=== PATIENT | male | born 1945 | race Caucasian/White ===

== ENCOUNTER 2021-08-04 10:42 | Observation (INO) ==
[2021-08-04] MEDS ORDERED: IOPAMIDOL 100 ML BOTTLE IV ONE (10:43)
--- NOTE | 2021-08-04 11:04 | Emergency Department Note ---
Neuro HPI General Chief Complaint: Stroke Symptoms Stated Complaint: Stroke symptoms, 929 last night Time Seen by Provider: 08/04/21 11:04 Source: patient Mode of arrival: ambulatory Limitations: no limitations History of Present Illness HPI Narrative: Narrative: 76-year-old male presents to the emergency department today because of a myriad of symptoms including tingling in the left upper extremity, confusion, bad headache, inability to clearly recall, lightheadedness, chills. Patient states that the symptoms began last night. To today they became difficult to ignore it so he let his know and subsequently came to the emerge department. Patient said he has had the symptoms in the past but they resolve. He has not had it evaluated no advised the physicians of that. He rates his discomfort as a 1 on a 0-to-10 scale states it is constant. Nothing makes it better or worse. Associated with all of the above. No radiation. Patient is also had associated emotional changes which are atypical for the patient. Patient stated that he felt dizzy this morning and had to lean against an object to keep from falling to the ground. He denied any pain. States his lower extremities feel normal. States that he believes his speech is normal and his face feels normal. 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 Patient's past medical history includes stomach problems for which she takes Prilosec. Related Data Home Medications Medication Instructions Recorded Confirmed acetaminophen 650 mg 650 mg PO QAM tab 07/12/19 07/23/21 tablet,extended release (Tylenol 8 Hour) cholecalciferol (vitamin D3) 1,250 50,000 unit PO QDAY cap 07/12/19 07/23/21 mcg (50,000 unit) capsule epinephrine 0.3 mg/0.3 mL 0.3 ml IM DIRECTED each 07/12/19 07/23/21 injection, auto-injector (EpiPen 2-Thong) fluticasone propionate 50 1 spray INTRANASAL DIRECTED PRN 07/12/19 07/23/21 mcg/actuation nasal ml spray,suspension melatonin 5 mg tablet 5 mg PO HS PRN 04/25/21 07/23/21 Previous Rx's Medication Instructions Recorded albuterol sulfate 90 mcg/actuation See Rx Instructions .ROUTE 10/27/19 aerosol inhaler (Ventolin HFA) .COMPLEX #18 unknown measurement unit code: gram baclofen 5 mg tablet 5 mg PO BID #60 tab 07/23/21 omeprazole 20 mg capsule,delayed 20 mg PO QDAY #30 cap 07/23/21 release Allergies Allergy/AdvReac Type Severity Reaction Status Date / Time almond Allergy Unknown Unknown Verified 08/04/21 10:42 Sulfa (Sulfonamide Allergy Unknown Unknown Verified 08/04/21 10:42 Antibiotics) carob Allergy Unknown Unknown Uncoded 07/23/21 10:08 Review of Systems ROS ROS Narrative: Narrative: All systems ED: reviewed and negative except as stated. Constitutional: Denies fever ENT ED: Denies throat pain or rhinorrhea Cardiovascular: Denies chest pain Respiratory: Denies shortness of breath Gastrointestinal: Denies abdominal pain Neurological: Reports headache PFSH Narrative Patient History Narrative: Narrative: Medical/Surgical/Family History All Active Problems (Updated 08/04/21 @ 16:34 by Kushal Nova MD) TIA (transient ischemic attack) (Acute) Acute cerebrovascular accident (CVA) (Acute) Excessive cerumen in right ear canal (Acute) Left lower quadrant abdominal pain (Acute) Impacted cerumen, bilateral (Acute) Right upper quadrant abdominal pain (Acute) Chest pain, atypical (Acute) Preoperative examination (Acute) Left knee DJD (Acute) Wheezing (Acute) Upper respiratory infection (Acute) Left medial knee pain (Acute) History of rotator cuff surgery (Chronic ~09/2005) History of colonoscopy (Chronic 04/08/18) Asthma (Chronic) Urticaria (Chronic) Hx of migraines (Chronic) History of nephrolithiasis (Chronic) Pulmonary hypertension (Chronic) Lumbar radiculopathy (Chronic) History of prostate cancer (Chronic) Encounter for long-term (current) use of medications (Chronic) Fatigue (Chronic) BPH (benign prostatic hyperplasia) (Chronic) GERD (gastroesophageal reflux disease) (Chronic) Arthralgia (Chronic) BMI 25.0-25.9,adult (Chronic) Hearing aid worn (Chronic) Sleep apnea (Chronic) Diverticulosis of colon (Chronic) Adenomatous colon polyp (Chronic) Hemorrhoids (Chronic) Excessive daytime sleepiness (Chronic) Snoring (Chronic) DDD (degenerative disc disease), lumbar (Chronic) Hip pain, left (Chronic) Shoulder pain, left (Chronic) Hyperlipidemia (Chronic) History of adenomatous polyp of colon (Chronic) Medical History Adenomatous colon polyp Arthralgia Asthma BMI 25.0-25.9,adult BPH (benign prostatic hyperplasia) DDD (degenerative disc disease), lumbar Diverticulosis of colon Encounter for long-term (current) use of medications Excessive daytime sleepiness normal night sleep Fatigue GERD (gastroesophageal reflux disease) Hearing aid worn Hemorrhoids Hip pain, left History of adenomatous polyp of colon History of nephrolithiasis History of prostate cancer Hx of migraines Hyperlipidemia mild, unchanged. Lumbar radiculopathy Pulmonary hypertension Shoulder pain, left Sleep apnea Snoring Urticaria carries epi pen Surgical History History of colonoscopy (04/08/18) Dr Meyer History of rotator cuff surgery (~09/2005) History of surgery TF DIEGO #1 Lt L3-4, Rt L5-S1 w/sed 03/06/2007/29 TF DIEGO #2 Rt. L5-S1, Lt. L3-4 w/sed 07/20/201903/29 TF DIEGO #1 Rt. L5-S1, Lt. L3-4 w/sed 04/01/201910/27 TF DIEGO #2 Rt L5-S1, Lt L3-4 w/sed 10/26/1807/28 TF DIEGO #1 Rt L5-S1, Lt L3-4 w/sed 07/14/1811/26 TF DIEGO #2 L3-4, left L5-S1, Right 11/20/201705/27 TF DIEGO #1 Rt L5-S1, Lt L3-4 w/o sed 06/05/2017 Family History Brother Asthma Brother Diabetes mellitus type 2 Sister Breast cancer Mother Ventricular shunt in place Parkinsons Father , age 51 Amyloidosis Grandmother Stroke maternal - in 1972 Old age paternal - in 2000 or 2002 Grandfather Old age Paternal in 1988 age 89 old age. Maternal in 2002 from old age Social History Smoking Status: Never smoker Substance Use: does not use Exam Narrative Narrative: Narrative: General Limitations: no limitations General appearance: Present alert and in no apparent distress Head Head: Present atraumatic and normocephalic Eye Eye: Present normal appearance and EOMI Neck Neck: Present normal inspection and trachea midline Respiratory Respiratory: Absent respiratory distress Cardiovascular Cardiovascular: Present regular rate Adbominal Abdominal: Present soft; Absent tenderness Extremities Extremities: Present normal inspection and other (Left upper extremity with 5/5 motor but with decrease in sensation.); Absent tenderness Neurological Neurological: Present alert, oriented X3 and other (Patient with strokelike symptoms including the loss of cunning with his left upper extremity.) Psychiatric Psychiatric: Present normal affect and normal mood Skin Skin: Present warm (WNL) and dry Course Vital Signs Vital signs: Vital Signs Pulse Rate 96 H 08/04/21 10:42 Respiratory Rate 16 08/04/21 10:42 Blood Pressure 163/103 08/04/21 10:42 Pulse Oximetry (%) 96 08/04/21 10:42 Pulse Rate 69 08/04/21 16:16 Respiratory Rate 21 08/04/21 16:16 Blood Pressure 118/78 08/04/21 16:16 Pulse Oximetry (%) 94 08/04/21 16:16 MDM MDM Narrative Medical decision making narrative: Narrative: Elderly male presents emerge department with strokelike symptoms that began greater than 12 hours ago. Differential diagnosis includes subdural hematoma, subarachnoid bleed, stroke with, ischemic changes in the brain, TIA, other. Patient arrived in stroke protocol was immediately instituted. Patient had a CT scan of the head which was read by the radiologist as showing no acute pathology. Case was discussed with the telestroke DrAugie (Aftab?). He advised that the patient be given aspirin 81 mg/day no Plavix. Lipitor 40 mg p.o. daily. NIH scale was performed and that showed a 1. Neurologist requested CT angio of the head and neck with those were performed and read by radiologist showing no no acute pathology. There was a 50% proximal left internal carotid artery blockage. Neurologist recommended patient be admitted to the hospital and have MRI. I discussed the case with our hospitalist Dr. Nova. He is agreeable to admit the p atient. While no MRI may be available at the moment a repeat CT scan may be obtained subsequently. He will further manage patient as needed. During this time patient had another episode of the left upper extremity developing a heavy sensation along with some tingling. The I discussed with the patient admission to the hospital and patient family were agreeable. Lab Data Result diagrams: 08/04/21 10:50 08/04/21 10:50 Labs: Lab Results 08/04/21 08/04/21 08/04/21 Range/Units 10:50 10:50 10:50 WBC 9.1 (4.5-11.0) K/mcL RBC 4.80 (4.63-6.08) M/mcL Hgb 15.4 (13.7-17.5) g/dL Hct 44.7 (40.1-51.0) % MCV 93.1 (80.0-100.0) fL MCH 32.1 (26.0-34.0) pg MCHC 34.5 (31.0-36.0) g/dL RDW 12.5 (11.5-14.5) % Plt Count 232 (140-440) K/mcL MPV 9.9 (7.4-10.4) fL Neut % (Auto) 78.8 H (38.0-78.0) % Lymph % (Auto) 12.1 L (15.5-49.0) % [place] % (Auto) 7.3 (1.0-12.0) % Eos % (Auto) 1.1 (0.0-7.0) % Baso % (Auto) 0.7 (0.0-2.0) % Lymph # (Auto) 1.10 L (1.50-4.80) K/mcL [place] # (Auto) 0.66 (0.10-0.90) K/mcL Eos # (Auto) 0.10 (0.00-0.70) K/mcL Baso # (Auto) 0.06 (0.00-0.30) K/mcL Absolute Neutrophils 7.14 (1.80-8.00) K/mcL POC PT 12.7 (11.9-14.5) sec PT 13.5 (11.9-14.5) sec POC INR 1.1 (0.8-1.2) INR 1.0 (0.9-1.1) APTT 31.5 (20.0-37.0) sec Sodium 132 L (133-145) mmol/L Potassium 4.0 (3.3-5.1) mmol/L Chloride 101 (96-108) mmol/L Carbon Dioxide 20 L (22-30) mmol/L Anion Gap 11.0 (8.0-16.0) BUN 20 (8-23) mg/dL Creatinine 1.0 (0.7-1.2) mg/dL POC Creatinine 1.0 (0.6-1.2) mg/dL GFR Calculation 74 Glucose 103 (70-105) mg/dL Calcium 9.7 (8.6-10.4) mg/dL Total Bilirubin 0.4 (0.1-1.0) mg/dL AST 24 (<40) U/L ALT 19 (<40) U/L Alkaline Phosphatase 63 (39-117) U/L Troponin T (<0.03) ng/mL Total Protein 6.9 (5.9-8.4) gm/dL Albumin 4.1 (3.2-5.2) gm/dL Globulin 2.8 (2.2-3.7) gm/dL Albumin/Globulin Ratio 1.5 (1.0-2.3) Urine Color Urine Appearance (Clear) Urine pH (5.0-9.0) Ur Specific [place] (1.000-1.035) Urine Protein (Negative) mg/dL Urine Glucose (UA) (Negative) mg/dL Urine Ketones (Negative) mg/dL Urine Occult Blood (Negative) mg/dL Urine Nitrate (Negative) Urine Bilirubin (Negative) mg/dL Urine Urobilinogen mg/dL Ur Leukocyte Esterase (Negative) /uL Ur Culture Indicated? 08/04/21 08/04/21 Range/Units 10:50 12:28 WBC (4.5-11.0) K/mcL RBC (4.63-6.08) M/mcL Hgb (13.7-17.5) g/dL Hct (40.1-51.0) % MCV (80.0-100.0) fL MCH (26.0-34.0) pg MCHC (31.0-36.0) g/dL RDW (11.5-14.5) % Plt Count (140-440) K/mcL MPV (7.4-10.4) fL Neut % (Auto) (38.0-78.0) % Lymph % (Auto) (15.5-49.0) % [place] % (Auto) (1.0-12.0) % Eos % (Auto) (0.0-7.0) % Baso % (Auto) (0.0-2.0) % Lymph # (Auto) (1.50-4.80) K/mcL [place] # (Auto) (0.10-0.90) K/mcL Eos # (Auto) (0.00-0.70) K/mcL Baso # (Auto) (0.00-0.30) K/mcL Absolute Neutrophils (1.80-8.00) K/mcL POC PT (11.9-14.5) sec PT (11.9-14.5) sec POC INR (0.8-1.2) INR (0.9-1.1) APTT (20.0-37.0) sec Sodium (133-145) mmol/L Potassium (3.3-5.1) mmol/L Chloride (96-108) mmol/L Carbon Dioxide (22-30) mmol/L Anion Gap (8.0-16.0) BUN (8-23) mg/dL Creatinine (0.7-1.2) mg/dL POC Creatinine (0.6-1.2) mg/dL GFR Calculation Glucose (70-105) mg/dL Calcium (8.6-10.4) mg/dL Total Bilirubin (0.1-1.0) mg/dL AST (<40) U/L ALT (<40) U/L Alkaline Phosphatase (39-117) U/L Troponin T < 0.01 (<0.03) ng/mL Total Protein (5.9-8.4) gm/dL Albumin (3.2-5.2) gm/dL Globulin (2.2-3.7) gm/dL Albumin/Globulin Ratio (1.0-2.3) Urine Color Yellow Urine Appearance Clear (Clear) Urine pH 6.0 (5.0-9.0) Ur Specific [place] 1.036 (1.000-1.035) Urine Protein Negative (Negative) mg/dL Urine Glucose (UA) Negative (Negative) mg/dL Urine Ketones Negative (Negative) mg/dL Urine Occult Blood Negative (Negative) mg/dL Urine Nitrate Negative (Negative) Urine Bilirubin Negative (Negative) mg/dL Urine Urobilinogen Negative mg/dL Ur Leukocyte Esterase Negative (Negative) /uL Ur Culture Indicated? No ED POC Tests ED POC Tests: LEYLA - SARS Antigen Negative EKG Data EKG #1: EKG attestation: Yes I reviewed and interpreted this EKG. EKG shows normal: sinus rhythm Rate: normal Rhythm: NSR [place]/QRS: left axis deviation ST segment elevation in: None ST segment depression in: None Hyperacute T waves: None Interpretation: other (Abnormal EKG. Sinus rhythm with left axis deviation) Discharge Plan Patient/Caregiver Discharge Instructions Pt seen by CARPORT ERECTOR/PA only: No Clinical Impression: Acute cerebrovascular accident (CVA) Patient Disposition: Xfer As Inpt ([facility]) Condition: Serious Follow up with: Kaelyn Botello ARNP [Primary Care Provider] - Prescriptions: No Action albuterol sulfate [Ventolin HFA] 90 mcg/actuation HFA aerosol inhaler See Rx Instructions .ROUTE .COMPLEX Qty: 18 1RF Dose Instruction: INHALE 2 PUFFS PO Q4H PRN COUGH AND WHEEZE Rx Instructions: INHALE 2 PUFFS PO Q4H PRN COUGH AND WHEEZE fluticasone propionate 50 mcg/actuation spray,suspension 1 spray INTRANASAL DIRECTED PRN0RF cholecalciferol (vitamin D3) 50,000 unit capsule 50,000 unit PO QDAY 0RF acetaminophen [Tylenol 8 Hour] 650 mg tablet extended release 650 mg PO QAM 0RF epinephrine [EpiPen 2-Thong] 0.3 mg/0.3 mL auto-injector 0.3 ml IM DIRECTED 0RF baclofen 5 mg tablet 5 mg PO BID Qty: 60 1RF omeprazole 20 mg capsule,delayed release(DR/EC) 20 mg PO QDAY Qty: 30 1RF melatonin 5 mg tablet 5 mg PO HS PRN0RF
[2021-08-04 11:25] LABS: POC INR 1.1 (0.8-1.2); POC Pro Time 12.7 sec (11.9-14.5)
[2021-08-04 11:27] LABS: Basophils # (Auto) 0.06 K/mcL (0.00-0.30); Basophils % (Auto) 0.7 % (0.0-2.0); Eosinophils % (Auto) 1.1 % (0.0-7.0); Hematocrit 44.7 % (40.1-51.0); Hemoglobin 15.4 g/dL (13.7-17.5); Lymphocytes % (Auto) 12.1 % (15.5-49.0); Mean Cell Volume 93.1 fL (80.0-100.0); Mean Corpuscular HGB Conc 34.5 g/dL (31.0-36.0); Mean Platelet Volume 9.9 fL (7.4-10.4); Monocytes # (Auto) 0.66 K/mcL (0.10-0.90); Monocytes % (Auto) 7.3 % (1.0-12.0); Neutrophils % (Auto) 78.8 % (38.0-78.0); Platelet Count 232 K/mcL (140-440); Red Cell Distribution Width 12.5 % (11.5-14.5); WBC 9.1 K/mcL (4.5-11.0)
[2021-08-04 11:39] LABS: Partial Thromboplastin Time 31.5 sec (20.0-37.0); Prothrombin Time 13.5 sec (11.9-14.5)
[2021-08-04] MEDS ORDERED: ASPIRIN 81 MG TAB.CHEW CHEWED ONE ×2 (11:43→16:55)
[2021-08-04] MEDS ORDERED: ATORVASTATIN 40 MG TABLET PO ONE (11:43)
[2021-08-04 11:44] LABS: ALT/SGPT 19 U/L (<40); AST/SGOT 24 U/L (<40); Albumin 4.1 gm/dL (3.2-5.2); Albumin/Globulin Ratio 1.5 (1.0-2.3); Alkaline Phosphatase 63 U/L (39-117); Bilirubin,Total 0.4 mg/dL (0.1-1.0); Blood Urea Nitrogen 20 mg/dL (8-23); Calcium 9.7 mg/dL (8.6-10.4); Carbon Dioxide 20 mmol/L (22-30); Chloride 101 mmol/L (96-108); Globulin 2.8 gm/dL (2.2-3.7); Glomerular Filtration Rate 74; Glucose 103 mg/dL (70-105)
[2021-08-04 13:03] LABS: Appearance,Urine CLEAR (Clear); Bilirubin,Urine Negative (Negative); Color,Urine YELLOW; Culture Indicated,Urine No; Glucose,Urine (UA) Negative (Negative); Ketones,Urine Negative (Negative); Leukocyte Esterase,Urine Negative /uL (Negative); Nitrate,Urine Negative (Negative); Protein,Urine Negative (Negative); Specific Gravity,Urine 1.036 (1.000-1.035); Urine Blood Negative (Negative); Urobilinogen,Urine Negative
--- NOTE | 2021-08-04 14:10 | Cat Scan Report ---
History: Neurologic deficit with lightheadedness and left arm tingling TECHNIQUE: The brain was imaged without contrast in axial plane at 2.5 mm intervals. Radiation exposure was limited using dose reduction technology. FINDINGS: There is no evidence of an infarct, hemorrhage, edema or mass effect. There is moderate atrophy in the frontal lobes with milder temporal and cerebellar atrophy. Ventricles are normal in size. There is no abnormal extra-axial fluid collection. Mild mucosal thickening is seen along the welsh of a few ethmoid air cells bilaterally. IMPRESSION: Age-related degenerative changes and no acute abnormality Dr. Mohan was called with the report Interpreted and Authenticated by: Alberto Mancear 08/04/21
--- NOTE | 2021-08-04 14:21 | Cat Scan Report ---
History: Stroke symptoms with lightheadedness and left arm tingling TECHNIQUE: Following injection of intravenous nonionic contrast the patient was imaged from the top of the head through the aortic arch. Sagittal and coronal reformats were created of the head and neck separately. The radiation exposure was limited using dose reduction technology. Brain: The intracranial portions of both internal carotids are normal and there is no plaque formation or stenosis. The anterior and middle cerebral arteries are normal in caliber and symmetric. There is origin of the left posterior cerebral, with an absent P1 segment of the left posterior cerebral. This is an anatomic variant. The right posterior communicating artery is relatively small and there is small but patent anterior communicating artery. Left vertebral artery is dominant but both vertebral arteries are normal in caliber and there is no plaque formation. Basilar artery and posterior fossa circulation are normal. There is no intracranial thrombosis or stenosis. No aneurysm or vascular malformation are present. NECK: The aortic arch is normal in caliber and there is no aneurysm or dissection. Small amount of calcified plaque is present distally. There is a moderate amount of soft plaque in the proximal portion of the left subclavian artery, proximal to the origin of the vertebral. This is causing approximately 50% stenosis. Distal to this the left subclavian is normal. The right innominate, right subclavian and right common carotids are normal in caliber without evidence of thrombus or stenosis. There is a moderate amount of mixed plaque in the proximal left internal carotid. This causing approximately 50% stenosis. There is no apparent ulceration within the plaque. Beyond this point the left internal carotid is normal. There is no plaque formation in the right carotid bifurcation. The distal right internal carotid is moderately tortuous but normal in caliber. External carotids are normal. The vertebral arteries are normal in caliber. The left is dominant. Enlarged lymph nodes are present in the mediastinum and upper cristal. Largest is in the pretracheal retrocaval space and measures 1.9 x 3.1 cm. The cristal are largely outside the field of view. There is a 1.2 x 1.7 cm lymph node in the left upper hilum. No mass is seen in the lung apices. Thyroid is normal. The larynx and soft tissues in the neck are normal. There is severe degenerative disc disease and arthritis at C3-4, C4-5, C5-C6 and C6-7. There is 5 mm grade 1 spondylolisthesis at C7-T1 due to arthritis in the facets. There is mild to moderate spinal canal stenosis at C4-5. Severe stenosis is present in the neural foramina bilaterally throughout the mid and lower neck due to spurs. IMPRESSION: Normal intracranial arterial circulation without evidence of atherosclerosis or thrombosis 50% stenosis at the origin of the proximal left internal carotid and the proximal left subclavian arteries due to plaque. Normal right carotid Dr. Mohan was called at 1:10 PM Interpreted and Authenticated by: Alberto Mancera 08/04/21
--- NOTE | 2021-08-04 16:24 | Internal Med History&Physical ---
HPI History of Present Illness Patient information: Note initiated : 08/04/21 at 4:23 pm Service Date, if different from initiated Date: [] Patient: Brian Keith 76 y/o M admitted on for Stroke symptoms, 929 last night. Chief Complaint: [left upper extremity weakness and tingling, headache, imb alance, left sided neck pain, nausea] Chief complaint: left upper extremity weakness and tingling, headache, imbalance, left sided History of present illness: Mr. Keith is a 76 year old M history of GERD, p/w 2 days history of left upper extremity weakness and tingling, headache, imbalance, left sided neck pain, nausea. He had similar episodes months ago. Yesterday evening he had sudden onset of left upper extremity weakness and tingling, headache, imbalance, left sided neck pain, nausea. There is no tingling or weakness of other extremities. Denies any change in hearing, tinnitus, or visual changes. Denies confusion. Denies chest pain, palpitation, or shortness of breath. Patient decided to come to our ED earlier today for further evaluation of his symptoms. Vital signs at ED presentations were all within normal limits. Labs also largely within normal limits. CT head w/o contrast no acute intracranial pathologies. CTA head/neck showing 50% stenosis at the origin of the proximal left internal carotid and the proximal left subclavian arteries due to plaque. Patient currently denies any tingling or weakness of his left upper extremity. Constitutional Constitutional: Absent chills, excessive sweating, fatigue, fever(s) or weakness EENT Eyes: Absent blurry vision, change in vision, loss of vision or other visual disturbances Ears: Absent decreased hearing or tinnitus Nose, mouth and throat: Absent abnormal hearing, dry mouth, headache(s), nasal congestion or sore throat Cardiovascular Cardiovascular: Absent chest pain, chest pain at rest, edema, irregular heart rhythm or palpatations Respiratory Respiratory: Absent cough, dyspnea or wheezing Gastrointestinal Gastrointestinal: Absent abdominal pain, constipation, diarrhea, nausea or vomiting Musculoskeletal Musculoskeletal: Present muscle weakness and numbness; Absent back pain, deformity, limited range of motion or muscle cramps Integumentary Integumentary: Absent lesions, rash or wounds Neurological Neurological: Present headache(s), tingling and weakness; Absent focal weakness or numbness Psychiatric Psychiatric: Absent anxiety, depression or hallucinations PFSH PFSH All Active Problems (Updated 08/04/21 @ 16:34 by Kushal Nova MD) TIA (transient ischemic attack) (Acute) Acute cerebrovascular accident (CVA) (Acute) Excessive cerumen in right ear canal (Acute) Left lower quadrant abdominal pain (Acute) Impacted cerumen, bilateral (Acute) Right upper quadrant abdominal pain (Acute) Chest pain, atypical (Acute) Preoperative examination (Acute) Left knee DJD (Acute) Wheezing (Acute) Upper respiratory infection (Acute) Left medial knee pain (Acute) History of rotator cuff surgery (Chronic ~09/2005) History of colonoscopy (Chronic 04/08/18) Asthma (Chronic) Urticaria (Chronic) Hx of migraines (Chronic) History of nephrolithiasis (Chronic) Pulmonary hypertension (Chronic) Lumbar radiculopathy (Chronic) History of prostate cancer (Chronic) Encounter for long-term (current) use of medications (Chronic) Fatigue (Chronic) BPH (benign prostatic hyperplasia) (Chronic) GERD (gastroesophageal reflux disease) (Chronic) Arthralgia (Chronic) BMI 25.0-25.9,adult (Chronic) Hearing aid worn (Chronic) Sleep apnea (Chronic) Diverticulosis of colon (Chronic) Adenomatous colon polyp (Chronic) Hemorrhoids (Chronic) Excessive daytime sleepiness (Chronic) Snoring (Chronic) DDD (degenerative disc disease), lumbar (Chronic) Hip pain, left (Chronic) Shoulder pain, left (Chronic) Hyperlipidemia (Chronic) History of adenomatous polyp of colon (Chronic) Medical History Adenomatous colon polyp Arthralgia Asthma BMI 25.0-25.9,adult BPH (benign prostatic hyperplasia) DDD (degenerative disc disease), lumbar Diverticulosis of colon Encounter for long-term (current) use of medications Excessive daytime sleepiness normal night sleep Fatigue GERD (gastroesophageal reflux disease) Hearing aid worn Hemorrhoids Hip pain, left History of adenomatous polyp of colon History of nephrolithiasis History of prostate cancer Hx of migraines Hyperlipidemia mild, unchanged. Lumbar radiculopathy Pulmonary hypertension Shoulder pain, left Sleep apnea Snoring Urticaria carries epi pen Surgical History History of colonoscopy (04/08/18) Dr Meyer History of rotator cuff surgery (~09/2005) History of surgery TF DIEGO #1 Lt L3-4, Rt L5-S1 w/sed 03/06/2007/29 TF DIEGO #2 Rt. L5-S1, Lt. L3-4 w/sed 07/20/201903/29 TF DIEGO #1 Rt. L5-S1, Lt. L3-4 w/sed 04/01/201910/27 TF DIEGO #2 Rt L5-S1, Lt L3-4 w/sed 10/26/1807/28 TF DIEGO #1 Rt L5-S1, Lt L3-4 w/sed 07/14/1811/26 TF DIEGO #2 L3-4, left L5-S1, Right 11/20/201705/27 TF DIEGO #1 Rt L5-S1, Lt L3-4 w/o sed 06/05/2017 Family History Brother Asthma Brother Diabetes mellitus type 2 Sister Breast cancer Mother Ventricular shunt in place Parkinsons Father , age 51 Amyloidosis Grandmother Stroke maternal - in 1972 Old age paternal - in 2000 or 2002 Grandfather Old age Paternal in 1988 age 89 old age. Maternal in 2002 from old age Social History household members: spouse marital status: occupational status: retired occupation: Retired [employer] substance use type: does not use additional history: Has 2 children, (boy & girl) and 6 grandchildren. MEDS/ALLERGIES Home Medications and Allergies Home Medications Medication Instructions Recorded Confirmed Type acetaminophen 650 mg 650 mg PO QAM tab 07/12/19 07/23/21 History tablet,extended release (Tylenol 8 Hour) cholecalciferol (vitamin D3) 1,250 50,000 unit PO QDAY cap 07/12/19 07/23/21 History mcg (50,000 unit) capsule epinephrine 0.3 mg/0.3 mL 0.3 ml IM DIRECTED each 07/12/19 07/23/21 History injection, auto-injector (EpiPen 2-Thong) fluticasone propionate 50 1 spray INTRANASAL DIRECTED PRN 07/12/19 07/23/21 History mcg/actuation nasal ml spray,suspension albuterol sulfate 90 mcg/actuation See Rx Instructions .ROUTE 10/27/19 07/23/21 Rx aerosol inhaler (Ventolin HFA) .COMPLEX #18 unknown measurement unit code: gram melatonin 5 mg tablet 5 mg PO HS PRN 04/25/21 07/23/21 History baclofen 5 mg tablet 5 mg PO BID #60 tab 07/23/21 07/23/21 Rx omeprazole 20 mg capsule,delayed 20 mg PO QDAY #30 cap 07/23/21 07/23/21 Rx release Allergies Allergy/AdvReac Type Severity Reaction Status Date / Time almond Allergy Unknown Unknown Verified 08/04/21 10:42 Sulfa (Sulfonamide Allergy Unknown Unknown Verified 08/04/21 10:42 Antibiotics) carob Allergy Unknown Unknown Uncoded 07/23/21 10:08 EXAM Constitutional Vitals: Pulse Resp BP Pulse Ox 56 L 21 124/81 94 08/04/21 15:46 08/04/21 15:46 08/04/21 15:46 08/04/21 15:46 General appearance: cooperative and no acute distress Head Head exam: Present atraumatic and normocephalic Eye Eye exam: Present EOMI and PERRL ENT ENT exam: Present mucous membranes moist, normal exam and normal external ear exam Neck Neck exam: Present normal inspection and tenderness (left lateral neck ); Absent lymphadenopathy or thyromegaly Respiratory Respiratory exam: Absent accessory muscle use, respiratory distress or wheezes Cardiovascular Cardiovascular exam: Present normal rate and rhythm; Absent JVD GI/Abdominal GI/Abdominal exam: Present normal bowel sounds and soft; Absent organomegaly or tenderness Rectal Rectal exam: Present deferred Extremities Exam Extremities exam: Present full ROM, normal capillary refill and normal inspection; Absent tenderness Neurological Exam Neurological exam: Present alert, CN II-XII intact and oriented X3; Absent motor sensory deficit Additional comments: slightly decreased light touch sensation of the left foot and ankle and lower leg Psychiatric Psychiatric exam: Present normal affect and normal mood; Absent anxious or depressed Skin Skin exam: Present dry and intact DATA Data Completed and Pending Labs: Labs from last 24 hours 08/04/21 08/04/21 08/04/21 12:28 10:50 10:50 WBC RBC Hgb Hct MCV MCH MCHC RDW Plt Count MPV Neut % (Auto) Lymph % (Auto) Glenn % (Auto) Eos % (Auto) Baso % (Auto) Lymph # (Auto) [place] # (Auto) Eos # (Auto) Baso # (Auto) Absolute Neutrophils POC PT PT POC INR INR APTT Sodium 132 L Potassium 4.0 Chloride 101 Carbon Dioxide 20 L Anion Gap 11.0 BUN 20 Creatinine 1.0 POC Creatinine 1.0 GFR Calculation 74 Glucose 103 Calcium 9.7 Total Bilirubin 0.4 AST 24 ALT 19 Alkaline Phosphatase 63 Troponin T < 0.01 Total Protein 6.9 Albumin 4.1 Globulin 2.8 Albumin/Globulin Ratio 1.5 Urine Color Yellow Urine Appearance Clear Urine pH 6.0 Ur Specific [place] 1.036 Urine Protein Negative Urine Glucose (UA) Negative Urine Ketones Negative Urine Occult Blood Negative Urine Nitrate Negative Urine Bilirubin Negative Urine Urobilinogen Negative Ur Leukocyte Esterase Negative Ur Culture Indicated? No 08/04/21 08/04/21 10:50 10:50 WBC 9.1 RBC 4.80 Hgb 15.4 Hct 44.7 MCV 93.1 MCH 32.1 MCHC 34.5 RDW 12.5 Plt Count 232 MPV 9.9 Neut % (Auto) 78.8 H Lymph % (Auto) 12.1 L Glenn % (Auto) 7.3 Eos % (Auto) 1.1 Baso % (Auto) 0.7 Lymph # (Auto) 1.10 L [place] # (Auto) 0.66 Eos # (Auto) 0.10 Baso # (Auto) 0.06 Absolute Neutrophils 7.14 POC PT 12.7 PT 13.5 POC INR 1.1 INR 1.0 APTT 31.5 Sodium Potassium Chloride Carbon Dioxide Anion Gap BUN Creatinine POC Creatinine GFR Calculation Glucose Calcium Total Bilirubin AST ALT Alkaline Phosphatase Troponin T Total Protein Albumin Globulin Albumin/Globulin Ratio Urine Color Urine Appearance Urine pH Ur Specific [place] Urine Protein Urine Glucose (UA) Urine Ketones Urine Occult Blood Urine Nitrate Urine Bilirubin Urine Urobilinogen Ur Leukocyte Esterase Ur Culture Indicated? A/P Assessment and plan (1) Acute cerebrovascular accident (CVA): Status: Acute (2) TIA (transient ischemic attack): Status: Acute (3) GERD (gastroesophageal reflux disease): Status: Chronic Qualifiers: Esophagitis presence: esophagitis presence not specified Qualified Code(s): K21.9 - Gastro-esophageal reflux disease without esophagitis Narrative A/P Narrative: Assessment and Plans: 1. CVA/stroke/TIA: Observation med surg telemetry Repeat CT head w/o contrast to look for any signs of acute ischemic stroke 2D echocardiogram Neurocheck q4hr HgA1c screening Lipid panel Aspirin Lipitor Physical therapy Occupational therapy 2. GERD: Continue oral PPI from home regimen GI ppx: Continue oral PPI from home regimen DVT ppx: Lovenox Code status: Full Prognosis: stable Disposition: observation med surg telemetry Time Spent With Patient Time: Total time spent is greater than 50% in coordination of care (as documented) at patient's floor/unit and/or counseling patient: Total time spent with greater than 50% in coordination of care (as documented) at patient's floor/unit and/or counseling patient:: 25 - 35 minutes QUALITY Stroke Symptom Onset Unknown: No
[2021-08-04] MEDS ORDERED: FLUTICASONE PROPIONATE SPRAY.NAS NS PRN (16:55)
[2021-08-04] MEDS ORDERED: ONDANSETRON 4 MG/2 ML VIAL IV PRN (16:55)
[2021-08-04] MEDS ORDERED: IPRATROPIUM/ALBUTEROL 3 ML AMPUL.NEB NEB PRN (16:55)
[2021-08-04] MEDS ORDERED: ZOLPIDEM 5 MG TABLET PO PRN (16:55)
[2021-08-04] MEDS ORDERED: MELATONIN 3 MG TABLET PO PRN (17:05)
[2021-08-04 17:21] LABS: Hemoglobin A1C 5.8 % Hgb (4.0-6.0)
[2021-08-04] MEDS ORDERED: SENNOSIDES 1 TABLET PO SCH (21:00)
[2021-08-04] MEDS: BACLOFEN 10 MG TABLET PO SCH (21:59)
[2021-08-04] MEDS: DOCUSATE SODIUM 100 MG CAPSULE PO SCH (21:59)
[2021-08-04] MEDS: 0.9 % SODIUM CHLORIDE 10 ML SYRINGE IV SCH (22:00)
[2021-08-05] MEDS: 0.9 % SODIUM CHLORIDE 10 ML SYRINGE IV SCH (05:50)
[2021-08-05 07:03] LABS: Basophils # (Auto) 0.05 K/mcL (0.00-0.30); Basophils % (Auto) 0.7 % (0.0-2.0); Eosinophils # (Auto) 0.39 K/mcL (0.00-0.70); Eosinophils % (Auto) 5.6 % (0.0-7.0); Hematocrit 44.2 % (40.1-51.0); Hemoglobin 14.8 g/dL (13.7-17.5); Lymphocytes # (Auto) 1.98 K/mcL (1.50-4.80); Lymphocytes % (Auto) 28.5 % (15.5-49.0); Mean Cell Volume 93.4 fL (80.0-100.0); Mean Corpuscular HGB Conc 33.5 g/dL (31.0-36.0); Mean Platelet Volume 10.5 fL (7.4-10.4); Monocytes # (Auto) 0.59 K/mcL (0.10-0.90); Monocytes % (Auto) 8.5 % (1.0-12.0); Neutrophils % (Auto) 56.7 % (38.0-78.0); Platelet Count 206 K/mcL (140-440); RBC 4.73 M/mcL (4.63-6.08); Red Cell Distribution Width 12.4 % (11.5-14.5); WBC 6.9 K/mcL (4.5-11.0)
[2021-08-05 07:07] LABS: ALT/SGPT 15 U/L (<40); AST/SGOT 19 U/L (<40); Albumin 3.7 gm/dL (3.2-5.2); Albumin/Globulin Ratio 1.5 (1.0-2.3); Alkaline Phosphatase 54 U/L (39-117); Bilirubin,Total 0.5 mg/dL (0.1-1.0); Blood Urea Nitrogen 21 mg/dL (8-23); Calcium 9.3 mg/dL (8.6-10.4); Carbon Dioxide 22 mmol/L (22-30); Chloride 106 mmol/L (96-108); Globulin 2.5 gm/dL (2.2-3.7); Glomerular Filtration Rate 74; Glucose 105 mg/dL (70-105); HDL Cholesterol 37 mg/dL (>40); LDL Cholesterol,Calculated 99 mg/dL (<100); Non-HDL Cholesterol 126 mg/dL (<130); Triglycerides 139 mg/dL (<150)
[2021-08-05] MEDS ORDERED: OMEPRAZOLE 20 MG CAPSULE PO SCH (07:30)
--- NOTE | 2021-08-05 08:14 | Cat Scan Report ---
History: Stroke symptoms TECHNIQUE: The brain was imaged without contrast in axial plane at 2.5 mm intervals. Sagittal and coronal reformats were created. The radiation exposure was limited using dose reduction technology. FINDINGS: There is no evidence of an infarct, hemorrhage or mass. Moderate atrophy is again seen in both frontal lobes. There is no abnormal extra-axial fluid collection. Ventricles are normal in size. There has been no change from the prior head CT performed on 08/04/21. IMPRESSION: Stable age-related degenerative changes and no evidence of an infarct Interpreted and Authenticated by: Alberto Mancera 08/05/21
[2021-08-05] MEDS: DOCUSATE SODIUM 100 MG CAPSULE PO SCH (08:18)
[2021-08-05] MEDS: BACLOFEN 10 MG TABLET PO SCH (08:18)
[2021-08-05] MEDS ORDERED: ATORVASTATIN 40 MG TABLET PO SCH (09:00)
[2021-08-05] MEDS ORDERED: ENOXAPARIN 40 MG/0.4 ML SYRINGE SQ SCH (09:00)
[2021-08-05] MEDS ORDERED: ASPIRIN 81 MG TAB.CHEW PO SCH (09:00)
[2021-08-05] MEDS ORDERED: ERGOCALCIFEROL (VITAMIN D2) 50,000 UNIT CAPSULE PO SCH (09:00)
[2021-08-05] MEDS ORDERED: ACETAMINOPHEN 325 MG TABLET PO SCH (09:00)
--- NOTE | 2021-08-05 11:39 | Discharge Summary ---
Discharge Provider Provider Patient information: Note initiated : 08/05/21 at 11:36 am Service Date, if different from initiated Date: [] Patient: Brian Keith 76 y/o M admitted on 08/04/21 for Stroke symptoms, 0930 last night. Chief Complaint: [] Date of admission: 08/04/21 16:50 Discharge date: 08/05/21 Primary care physician: JIMBO Elizalde Attending physician on admission: Kushal Nova Consults: 08/04/21 Consult to Physician [CONS] Stat Comment: Consulting Provider: Kushal Nova Reason For Exam: Physician to Consult Attending physician on discharge: Kushal Nova Discharge Meds Discharge Medications Home Medications acetaminophen 650 mg tablet,extended release (Tylenol 8 Hour) 650 mg PO QAM tab 07/12/19 [History Confirmed 07/23/21 Last Taken Unknown] cholecalciferol (vitamin D3) 1,250 mcg (50,000 unit) capsule 50,000 unit PO QDAY cap 07/12/19 [History Confirmed 07/23/21 Last Taken Unknown] epinephrine 0.3 mg/0.3 mL injection, auto-injector (EpiPen 2-Thong) 0.3 ml IM DIRECTED each 07/12/19 [History Confirmed 07/23/21 Last Taken Unknown] fluticasone propionate 50 mcg/actuation nasal spray,suspension 1 spray INTRANASAL DIRECTED PRN ml 07/12/19 [History Confirmed 07/23/21 Last Taken Unknown] albuterol sulfate 90 mcg/actuation aerosol inhaler (Ventolin HFA) See Rx Instructions .ROUTE .COMPLEX #18 unknown measurement unit code: gram 10/27/19 [Rx Confirmed 07/23/21 Last Taken Unknown] melatonin 5 mg tablet 5 mg PO HS PRN 04/25/21 [History Confirmed 07/23/21 Last Taken Unknown] baclofen 5 mg tablet 5 mg PO BID #60 tab 07/23/21 [Rx Confirmed 07/23/21 Last Taken Unknown] omeprazole 20 mg capsule,delayed release 20 mg PO QDAY #30 cap 07/23/21 [Rx Confirmed 07/23/21 Last Taken Unknown] aspirin 81 mg chewable tablet 81 mg PO DAILY #30 tab 08/05/21 [Rx Last Taken Unknown] atorvastatin 40 mg tablet 40 mg PO DAILY #30 tab 08/05/21 [Rx Last Taken Unknown] COURSE Hospital Course Hospital course: Mr. Keith is a 76 year old M history of GERD, p/w 2 days history of left upper extremity weakness and tingling, headache, imbalance, left sided neck pain, nausea. He had similar episodes months ago. Yesterday evening he had sudden onset of left upper extremity weakness and tingling, headache, imbalance, left sided neck pain, nausea. There is no tingling or weakness of other extremities. Denies any change in hearing, tinnitus, or visual changes. Denies confusion. Denies chest pain, palpitation, or shortness of breath. Patient decided to come to our ED earlier today for further evaluation of his symptoms. Vital signs at ED presentations were all within normal limits. Labs also largely within normal limits. CT head w/o contrast no acute intracranial pathologies. CTA head/neck showing 50% stenosis at the origin of the proximal left internal carotid and the proximal left subclavian arteries due to plaque. Patient currently denies any tingling or weakness of his left upper extremity. 08/05: Repeat CT head w/o contrast no signs of acute stroke. NIH score of 0. All symptoms resolved. Reached clinical stability. Discharged home with instruction to follow up with PCP in 2 week. All questions answered prior to patient being physically discharged. Discharge diagnosis: Transiet ischemic attack. Time Spent with Patient Time attestation: Total time spent providing and/or coordinating discharge services: Time spent: Less than 30 minutes EXAM Constitutional Vitals: Temp Pulse Resp BP Pulse Ox 36.5 C 56 L 16 130/81 95 08/05/21 08:10 08/05/21 08:10 08/05/21 10:38 08/05/21 10:38 08/05/21 10:38 General appearance: cooperative and no acute distress Head Head exam: Present atraumatic and normocephalic Eye Eye exam: Present EOMI and PERRL ENT ENT exam: Present mucous membranes moist, normal exam and normal external ear exam Neck Neck exam: Present normal inspection; Absent lymphadenopathy, tenderness or thyromegaly Respiratory Respiratory exam: Absent accessory muscle use, respiratory distress or wheezes Cardiovascular Cardiovascular exam: Present normal rate and rhythm; Absent JVD GI/Abdominal GI/Abdominal exam: Present normal bowel sounds and soft; Absent organomegaly or tenderness Rectal Rectal exam: Present deferred Extremities Exam Extremities exam: Present full ROM, normal capillary refill and normal inspection; Absent tenderness Neurological Exam Neurological exam: Present alert, CN II-XII intact and oriented X3; Absent motor sensory deficit Psychiatric Psychiatric exam: Present normal affect and normal mood; Absent anxious or depressed Skin Skin exam: Present dry and intact Discharge Data Data Completed and Pending Labs on day of discharge: Labs from last 24 hours 08/05/21 08/05/21 08/04/21 05:53 05:53 12:28 WBC 6.9 RBC 4.73 Hgb 14.8 Hct 44.2 MCV 93.4 MCH 31.3 MCHC 33.5 RDW 12.4 Plt Count 206 MPV 10.5 H Neut % (Auto) 56.7 Lymph % (Auto) 28.5 [place] % (Auto) 8.5 Eos % (Auto) 5.6 Baso % (Auto) 0.7 Lymph # (Auto) 1.98 [place] # (Auto) 0.59 Eos # (Auto) 0.39 Baso # (Auto) 0.05 Absolute Neutrophils 3.93 PT INR APTT Sodium 139 Potassium 4.1 Chloride 106 Carbon Dioxide 22 Anion Gap 11.0 BUN 21 Creatinine 1.0 GFR Calculation 74 Glucose 105 Hemoglobin A1c Estim Average Glucose Calcium 9.3 Total Bilirubin 0.5 AST 19 ALT 15 Alkaline Phosphatase 54 Troponin T Total Protein 6.2 Albumin 3.7 Globulin 2.5 Albumin/Globulin Ratio 1.5 Triglycerides 139 Cholesterol 163 LDL Cholesterol, Calc 99 Non-HDL Cholesterol 126 HDL Cholesterol 37 L Urine Color Yellow Urine Appearance Clear Urine pH 6.0 Ur Specific [place] 1.036 Urine Protein Negative Urine Glucose (UA) Negative Urine Ketones Negative Urine Occult Blood Negative Urine Nitrate Negative Urine Bilirubin Negative Urine Urobilinogen Negative Ur Leukocyte Esterase Negative Ur Culture Indicated? No 08/04/21 08/04/21 08/04/21 10:50 10:50 10:50 WBC RBC Hgb Hct MCV MCH MCHC RDW Plt Count MPV Neut % (Auto) Lymph % (Auto) [place] % (Auto) Eos % (Auto) Baso % (Auto) Lymph # (Auto) [place] # (Auto) Eos # (Auto) Baso # (Auto) Absolute Neutrophils PT INR APTT Sodium 132 L Potassium 4.0 Chloride 101 Carbon Dioxide 20 L Anion Gap 11.0 BUN 20 Creatinine 1.0 GFR Calculation 74 Glucose 103 Hemoglobin A1c 5.8 Estim Average Glucose 120 Calcium 9.7 Total Bilirubin 0.4 AST 24 ALT 19 Alkaline Phosphatase 63 Troponin T < 0.01 Total Protein 6.9 Albumin 4.1 Globulin 2.8 Albumin/Globulin Ratio 1.5 Triglycerides Cholesterol LDL Cholesterol, Calc Non-HDL Cholesterol HDL Cholesterol Urine Color Urine Appearance Urine pH Ur Specific [place] Urine Protein Urine Glucose (UA) Urine Ketones Urine Occult Blood Urine Nitrate Urine Bilirubin Urine Urobilinogen Ur Leukocyte Esterase Ur Culture Indicated? 08/04/21 10:50 WBC RBC Hgb Hct MCV MCH MCHC RDW Plt Count MPV Neut % (Auto) Lymph % (Auto) [place] % (Auto) Eos % (Auto) Baso % (Auto) Lymph # (Auto) [place] # (Auto) Eos # (Auto) Baso # (Auto) Absolute Neutrophils PT 13.5 INR 1.0 APTT 31.5 Sodium Potassium Chloride Carbon Dioxide Anion Gap BUN Creatinine GFR Calculation Glucose Hemoglobin A1c Estim Average Glucose Calcium Total Bilirubin AST ALT Alkaline Phosphatase Troponin T Total Protein Albumin Globulin Albumin/Globulin Ratio Triglycerides Cholesterol LDL Cholesterol, Calc Non-HDL Cholesterol HDL Cholesterol Urine Color Urine Appearance Urine pH Ur Specific [place] Urine Protein Urine Glucose (UA) Urine Ketones Urine Occult Blood Urine Nitrate Urine Bilirubin Urine Urobilinogen Ur Leukocyte Esterase Ur Culture Indicated? Discharge Plan Patient/Caregiver Discharge Instructions Activity: increase activity as tolerated Diet: Regular Diet Prescriptions: New aspirin 81 mg Tablet,Chewable 81 mg PO DAILY Qty: 30 0RF atorvastatin 40 mg Tablet 40 mg PO DAILY Qty: 30 0RF Continued albuterol sulfate [Ventolin HFA] 90 mcg/actuation HFA aerosol inhaler See Rx Instructions .ROUTE .COMPLEX Qty: 18 1RF Dose Instruction: INHALE 2 PUFFS PO Q4H PRN COUGH AND WHEEZE Rx Instructions: INHALE 2 PUFFS PO Q4H PRN COUGH AND WHEEZE fluticasone propionate 50 mcg/actuation spray,suspension 1 spray INTRANASAL DIRECTED PRN0RF cholecalciferol (vitamin D3) 50,000 unit capsule 50,000 unit PO QDAY 0RF acetaminophen [Tylenol 8 Hour] 650 mg tablet extended release 650 mg PO QAM 0RF epinephrine [EpiPen 2-Thong] 0.3 mg/0.3 mL auto-injector 0.3 ml IM DIRECTED 0RF baclofen 5 mg tablet 5 mg PO BID Qty: 60 1RF omeprazole 20 mg capsule,delayed release(DR/EC) 20 mg PO QDAY Qty: 30 1RF melatonin 5 mg tablet 5 mg PO HS PRN0RF Follow Up Plan Follow up with: Kaelyn Botello ARNP [Primary Care Provider] - Patient Disposition: Home, Self-Care Prognosis: Serious Rehab Potential: Good I certify that the patient requires SNF services: No Overall status at discharge: patient is back to baseline Discharge Orders: Discharge Order (Routine); Ordered 08/05/21 Ordered By: Kushal MIRANDA VTE Deep Vein Thrombosis/Pulmonary Embolism Present on Admission: No
--- NOTE | 2021-08-06 11:06 | EKG ---
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 Measurements Intervals [place] Rate: 64 P: 32 VT: 184 QRS: -29 QRSD: 102 T: -1 QT: 415 QTc: 428 Interpretive Statements Sinus rhythm Borderline left axis deviation Borderline T abnormalities, inferior leads Electronically Signed On 08-06-2021 11:06:16 PST by Sonido Mancera M.D. /[id number]
== END 2021-08-05 14:49 | disposition home or self-care (01) ==
LOC: ED 10:42 → ICU 10:42
PROVIDERS: ADMIT Internal Medicine; ATTEND Internal Medicine